=== PATIENT | male | born 1980 | race Caucasian/White ===

== ENCOUNTER 2020-09-21 19:18 | Emergency (ER) | payer OTHER ==
[2020-09-21] MEDS ORDERED: Sodium Chloride 0.9% 10 ML Syringe FLUSH PRN (20:01)
[2020-09-21] MEDS ORDERED: Sodium Chloride 0.9% 1,000 ML IV STA (20:01)
[2020-09-21] MEDS ORDERED: Ondansetron 4 MG/2 ML SDV IVPUSH ONE (20:01)
[2020-09-21] MEDS ORDERED: Dicyclomine 10 MG Cap PO ONE (20:03)
--- NOTE | 2020-09-21 21:11 | EDM.PDOC ---
ED HPI GENERAL MEDICAL PROBLEM - General Chief Complaint: Abdominal Pain Stated Complaint: ABDOMINAL PAIN/NAUSEA/FATIGUE Time Seen by Provider: 09/21/20 19:52 Source of Information: Reports: Patient, RN Notes Reviewed History Limitations: Reports: No Limitations - History of Present Illness INITIAL COMMENTS - FREE TEXT/NARRATIVE: Patient is a 40-year-old male presenting to the emergency department with complaints of generalized abdominal cramping, nausea, vomiting, and diarrhea. Symptoms began on Saturday. He had diarrhea throughout the day Saturday, however this has resolved. He had a normal bowel movement last evening. He continues with intermittent abdominal cramping as well as nausea and vomiting. This evening, he was able to keep down crackers and fluids. He feels that he may have eaten something bad on Saturday. Denies any blood in his stools. He feels that he may have been febrile yesterday, however he is afebrile on triage today. Denies any chronic medical conditions. He has not been using any [id number] medications to treat his symptoms. Abdomen Pain Score (Numeric/FACES): 5 - Related Data Allergies Allergy/AdvReac Type Severity Reaction Status Date / Time No Known Allergies Allergy Verified 09/21/20 19:31 Home Meds: Home Meds Dicyclomine [Bentyl] 20 mg PO TID PRN #9 tab 09/21/20 [Rx] Ondansetron [Zofran ODT] 4 mg PO Q6H PRN #10 tab.dis 09/21/20 [Rx] Past Medical History Gastrointestinal History: Reports: Hiatal Hernia - Past Surgical History GI Surgical History: Reports: Hernia, Abdominal Other GI Surgeries/Procedures: surgery done both hernias Musculoskeletal Surgical History: Reports: ORIF Social & Family History - Tobacco Use Tobacco Use Status *Q: Never Tobacco User - Caffeine Use Caffeine Use: Reports: Coffee - Recreational Drug Use Recreational Drug Use: No ED ROS GENERAL - Review of Systems Review Of Systems: See Below Constitutional: Reports: Fever, Decreased Appetite. Denies: Weakness HEENT: Reports: No Symptoms Respiratory: Reports: No Symptoms Cardiovascular: Reports: No Symptoms Endocrine: Reports: No Symptoms GI/Abdominal: Reports: Abdominal Pain, Nausea, Vomiting : Reports: No Symptoms Musculoskeletal: Reports: No Symptoms Skin: Reports: No Symptoms Neurological: Reports: No Symptoms Psychiatric: Reports: No Symptoms Hematologic/Lymphatic: Reports: No Symptoms Immunologic: Reports: No Symptoms ED EXAM, GI/ABD - Physical Exam Exam: See Below General Appearance: Alert, WD/WN, No Apparent Distress Respiratory/Chest: No Respiratory Distress, Lungs Clear, Normal Breath Sounds, No Accessory Muscle Use, Chest Non-Tender Cardiovascular: Normal Peripheral Pulses, Regular Rate, Rhythm, No Edema, No Gallop, No JVD, No Murmur, No Rub GI/Abdominal Exam: Normal Bowel Sounds, Soft, Non-Tender, No Organomegaly, No Distention, No Abnormal Bruit, No Mass, Pelvis Stable Neurological: Alert, Oriented, CN II-XII Intact, Normal Cognition, Normal Gait, Normal Reflexes, No Motor/Sensory Deficits Psychiatric: Normal Affect, Normal Mood Course - Vital Signs Last Recorded V/S: Last Vital Signs Temp 97.7 F 09/21/20 19:27 Pulse 76 09/21/20 19:27 Resp 18 09/21/20 19:27 BP 150/90 H 09/21/20 19:27 Pulse Ox 96 09/21/20 19:27 - Orders/Labs/Meds Orders: Active Orders 24 hr Category Date Time Status Peripheral IV Care [RC] . DIRECTED Care 09/21/20 20:01 Active Abdomen 2V AP Flat Upright [CR] Stat Exams 09/21/20 20:14 Taken UA W/MICROSCOPIC [URIN] Stat Lab 09/21/20 21:30 Results Sodium Chloride 0.9% [Saline Flush] Med 09/21/20 20:01 Active 10 ml FLUSH ASDIRECTED PRN Peripheral IV Insertion Adult [OM.PC] Stat Oth 09/21/20 20:00 Ordered Medication Orders Sodium Chloride (Sodium Chloride 0.9% 10 Ml Syringe) 10 ml FLUSH ASDIRECTED PRN PRN Reason: Keep Vein Open Last Admin: 09/21/20 20:22 Dose: 10 ml Documented by: RENY Labs: Laboratory Tests 09/21/20 09/21/20 09/21/20 Range/Units 20:20 20:20 21:30 WBC 7.87 (4.23-9.07) K/mm3 RBC 5.18 (4.63-6.08) M/mm3 Hgb 14.8 (13.7-17.5) gm/dl Hct 44.9 (40.1-51.0) % MCV 86.7 (79.0-92.2) fl MCH 28.6 (25.7-32.2) pg MCHC 33.0 (32.2-35.5) g/dl RDW Std Deviation 41.9 (35.1-43.9) fL Plt Count 240 (163-337) K/mm3 MPV 10.8 (9.4-12.3) fl Neut % (Auto) 76.7 H (34.0-67.9) % Lymph % (Auto) 13.6 L (21.8-53.1) % [place] % (Auto) 6.4 (5.3-12.2) % Eos % (Auto) 2.7 (0.8-7.0) Baso % (Auto) 0.3 (0.1-1.2) % Neut # (Auto) 6.05 H (1.78-5.38) K/mm3 Lymph # (Auto) 1.07 L (1.32-3.57) K/mm3 [place] # (Auto) 0.50 (0.30-0.82) K/mm3 Eos # (Auto) 0.21 (0.04-0.54) K/mm3 Baso # (Auto) 0.02 (0.01-0.08) K/mm3 Sodium 143 (136-145) mEq/L Potassium 4.1 (3.5-5.1) mEq/L Chloride 105 (98-107) mEq/L Carbon Dioxide 30 (21-32) mEq/L Anion Gap 12.1 (5-15) BUN 14 (7-18) mg/dL Creatinine 1.1 (0.7-1.3) mg/dL Est Cr Clr Drug Dosing TNP Estimated GFR (MDRD) > 60 (>60) mL/min BUN/Creatinine Ratio 12.7 L (14-18) Glucose 93 (70-99) mg/dL Calcium 8.8 (8.5-10.1) mg/dL Total Bilirubin 0.5 (0.2-1.0) mg/dL AST 26 (15-37) U/L ALT 56 (16-63) U/L Alkaline Phosphatase 75 (46-116) U/L C-Reactive Protein 1.6 H* (<1.0) mg/dL Total Protein 7.6 (6.4-8.2) g/dl Albumin 3.7 (3.4-5.0) g/dl Globulin 3.9 gm/dL Albumin/Globulin Ratio 1.0 (1-2) Lipase 62 L (73-393) U/L Urine Color Yellow (Yellow) Urine Appearance Clear (Clear) Urine pH 6.5 (5.0-8.0) Ur Specific [place] 1.025 (1.005-1.030) Urine Protein 1+ H (Negative) Urine Glucose (UA) Negative (Negative) Urine Ketones Negative (Negative) Urine Occult Blood Negative (Negative) Urine Nitrite Negative (Negative) Urine Bilirubin Negative (Negative) Urine Urobilinogen 1.0 (0.2-1.0) Ur Leukocyte Esterase Negative (Negative) Meds: Medications Generic Name Dose Route Start Last Admin Trade Name Freq PRN Reason Stop Dose Admin Sodium Chloride 10 ml 09/21/20 20:01 09/21/20 20:22 Sodium Chloride 0.9% 10 Ml Syringe FLUSH 10 ml ASDIRECTED PRN Administration Keep Vein Open Discontinued Medications Generic Name Dose Route Start Last Admin Trade Name Freq PRN Reason Stop Dose Admin Dicyclomine HCl 20 mg 09/21/20 20:03 09/21/20 20:23 Dicyclomine 10 Mg Cap PO 09/21/20 20:04 20 mg ONETIME ONE Administration Sodium Chloride 1,000 mls @ 999 mls/hr 09/21/20 20:01 09/21/20 20:21 Normal Saline IV 09/21/20 21:01 999 mls/hr NOW STA Administration Ondansetron HCl 4 mg 09/21/20 20:01 09/21/20 20:22 Ondansetron 4 Mg/2 Ml Sdv IVPUSH 09/21/20 20:02 4 mg ONETIME ONE Administration - Re-Assessments/Exams Free Text/Narrative Re-Assessment/Exam: Patient is a 40-year-old male presenting to the emergency department with complaints of abdominal cramping, nausea, and vomiting. Reports that on Saturday he also had diarrhea, however this is resolved. He feels that he ate something bad. Exam is unremarkable. He has no abdominal tenderness. Bowel sounds are active. I have ordered blood work, abdomen flat and upright x-ray, urinalysis,. I will give him a 1 L bolus of normal saline, Zofran, and Bentyl. 09/21/20 21:47 Hematology and urinalysis are unremarkable. Abdomen x-ray shows a normal bowel gas pattern with no significant amounts of stool. Patient is likely suffering from viral gastroenteritis. We will discharge him home with a prescription for Zofran and Bentyl. Discussed that he should be improving over the next few days. If he does not or his symptoms worsen, he should be reevaluated. Discharge instructions as documented. Departure - Departure Time of Disposition: 21:47 Disposition: Home, Self-Care 01 Condition: Good Clinical Impression: Abdominal pain Qualifiers: Abdominal location: generalized Qualified Code(s): R10.84 - Generalized abdominal pain Vomiting Qualifiers: Vomiting type: unspecified Vomiting Intractability: non-intractable Nausea presence: with nausea Qualified Code(s): R11.2 - Nausea with vomiting, unspecified - Discharge Information *PRESCRIPTION DRUG MONITORING PROGRAM REVIEWED*: No *COPY OF PRESCRIPTION DRUG MONITORING REPORT IN PATIENT JOON: No Prescriptions: Dicyclomine [Bentyl] 20 mg PO TID PRN #9 tab PRN Reason: Abdominal Pain Ondansetron [Zofran ODT] 4 mg PO Q6H PRN #10 tab.dis PRN Reason: Nausea/Vomiting Instructions: Nausea and Vomiting, Adult Referrals: PCP,None [Primary Care Provider] - Forms: ED Department Discharge, ED Return to Work/School Form Additional Instructions: You are seen in the emergency department today for nausea, vomiting, abdominal pain, and diarrhea. Work-up included blood work, urinalysis, and x-ray of your abdomen. Results of your work-up were found to be normal. As we discussed, you are likely suffering from either viral gastroenteritis or possible foodborne illness. Recommend clear liquid diet for the next 24 to 72 hours or until symptoms resolve. Prescription has been sent for Zofran and Bentyl. Uses as prescribed. Symptoms should continue to improve over the next few days. If you should experience worsening of symptoms or they fail to improve, you should be reevaluated. Sepsis Event Note (ED) - Evaluation Sepsis Screening Result: No Definite Risk - Focused Exam Vital Signs: Vital Signs Temp Pulse Resp BP Pulse Ox 09/21/20 19:27 97.7 F 76 18 150/90 H 96 - My Orders Last 24 Hours: My Active Orders 09/21/20 20:00 Peripheral IV Insertion Adult [OM.PC] Stat 09/21/20 20:01 Peripheral IV Care [RC] . DIRECTED Sodium Chloride 0.9% [Saline Flush] 10 ml FLUSH ASDIRECTED PRN 09/21/20 20:14 Abdomen 2V AP Flat Upright [CR] Stat 09/21/20 21:30 UA W/MICROSCOPIC [URIN] Stat - Assessment/Plan Last 24 Hours: My Active Orders 09/21/20 20:00 Peripheral IV Insertion Adult [OM.PC] Stat 09/21/20 20:01 Peripheral IV Care [RC] . DIRECTED Sodium Chloride 0.9% [Saline Flush] 10 ml FLUSH ASDIRECTED PRN 09/21/20 20:14 Abdomen 2V AP Flat Upright [CR] Stat 09/21/20 21:30 UA W/MICROSCOPIC [URIN] Stat
--- NOTE | 2020-09-22 07:50 | CR ---
Abdomen: Supine and upright views of the abdomen were obtained. Comparison: No prior abdominal imaging is available. Bowel gas pattern appears normal. No abnormal calcifications or soft tissue abnormality is appreciated. No free air is seen. Bony structures show nothing acute. Impression: 1. Nothing acute is identified on 2 view abdominal x-ray. Diagnostic code #1
== END 2020-09-21 21:59 | disposition home or self-care (01) ==
LOC: JD.ED 19:18
DX: R10.84 Generalized abdominal pain (principal); R11.2 Nausea with vomiting, unspecified; R19.7 Diarrhea, unspecified
CPT/HCPCS: 36415; 74019; 80053; 81001; 83690; 85025; 86140; 96374; 99284; A9270; J2405; J7030